=== PATIENT | female | born 1985 | race Caucasian/White ===

== ENCOUNTER 2024-08-23 15:43 | Emergency (ER) | payer BC, SELFPAY ==
[2024-08-23 16:00] VITALS: BP 104/73; PULSE 92; RESP 18; TEMP 36.7; O2SAT 97; BMI 27.5
--- NOTE | 2024-08-23 18:22 | ED_ITS ---
HPI - Abdominal Pain General Time Seen by Provider: 18:22 Date Seen: 08/23/24 Chief Complaint: Abdominal Pain Stated Complaint: lower abdominal pain Time Seen by Provider: 08/23/24 15:57 Source: patient and RN notes reviewed Mode of arrival: ambulatory Limitations: no limitations History of Present Illness HPI narrative: This very pleasant 39-year-old female is ambulatory into the ED accompanied by her spouse with complaint of lower abdominal pain. She and her spells where having intercourse. Afterwards, she started feeling cramping. About an hour after this, she was feeling more intense pain, felt like she might need to have a bowel movement. She actually felt lightheaded, like she might pass out the pain became so severe, had chills during this time. She had a history of a ruptured ovarian cyst about 12-15 years ago, had an ultrasound. She states this feels similar. She is due for her menstrual cycle maybe within the next 5 days or so. Her has had a vasectomy. She had no vaginal bleeding. She is not on any contraceptives. She prior to this was not having any nausea vomiting, no diarrhea constipation, no changes in urination, no fevers or chills. The pain has let up some now. She has had no abdominal surgeries, has had 2 NSVDs. She states she has had normal Pap smears. MD elicited complaint: abdominal pain Related Data Home Medications ?Medication ?Instructions ?Recorded ?Confirmed No Known Home Medications 08/23/24 08/23/24 Allergies Allergy/AdvReac Type Severity Reaction Status Date / Time codeine AdvReac Intermediate Verified 08/23/24 16:07 Review of Systems Status of ROS Reports: 6 or more systems reviewed and unremarkable except as noted in History and below PFSH PFS Social History Smoking Status: Former smoker What tobacco products do you use: cigarettes Smoking quit date/years: <= 15 years ago Do you use any of these nicotine containing products: None How often do you have a drink containing alcohol: 2-3 times a week AUDIT-C Alcohol total score: 3 Non-prescribed substance use: denies use Exam Const: Vital Signs, click to edit/add: Vital Signs - 24 hr 08/23/24 16:00 08/23/24 18:53 08/23/24 20:15 Temperature 98.1 F 97.8 F 97.0 F L Pulse Rate [Right Pulse Oximeter] 92 74 76 Respiratory Rate 18 16 18 Blood Pressure [Ri ght Upper Arm] 104/73 110/82 110/78 Pulse Oximetry 97 97 97 Oxygen Delivery Me thod Room Air Room Air Room Air Cherrie is a very pleasant 39-year-old female that is alert, interactive, no apparent distress. Sclera clear, no icterus. CV regular rate and rhythm, no murmur. Lungs clear anteriorly. Abdomen is soft, nondistended, normal bowel sounds. She has no rebound or guarding, mild suprapubic to left lower quadrant pain again without rebound or guarding. Do not feel any organomegaly or masses. Pelvic exam and bimanual exam deferred at this point. Documenting provider has reviewed patient's vital signs: yes Course Course ED Course: Will obtain pelvic ultrasound to look for ovarian cyst pathology. Certainly ovarian cysts could be possible etiology. Will also look at a CBC, basic UA, confirm negative status. has had a vasectomy but there can be failure rates with this. Right now she is feeling better, she is advised to let me know if pain is intensifying again or further concerns. Reevaluation(s) Time of Reevaluation #1: 20:53 Reevaluation #1: Have reviewed with patient her ultrasound report. She has a right ovarian cyst and then probable ruptured right ovarian hemorrhagic cyst. Her pain is not significant at this time, not increasing. Do not have concerns for ongoing active bleeding based on her clinical examination. Did review the need to have follow-up ultrasound after 2 menstrual cycles to assure the cysts stability or resolution. Vital Signs Vital signs: Initial Vital Signs Temperature 98.1 F 08/23/24 16:00 Temperature Source Temporal Artery Scan 08/23/24 16:00 Pulse Rate 92 08/23/24 16:00 Pulse Rhythm Regular 08/23/24 16:00 Respiratory Rate 18 08/23/24 16:00 Blood Pressure 104/73 08/23/24 16:00 Blood Pressure Mean 83 08/23/24 16:00 Blood Pressure Position Sitting 08/23/24 16:00 Pulse Oximetry 97 08/23/24 16:00 Oxygen Delivery Method Room Air 08/23/24 16:00 Vital Signs Temperature 98.1 F 08/23/24 16:00 Pulse Rate 92 08/23/24 16:00 Respiratory Rate 18 08/23/24 16:00 Blood Pressure 104/73 08/23/24 16:00 Pulse Oximetry 97 08/23/24 16:00 Oxygen Delivery Method Room Air 08/23/24 16:00 Temperature 97.0 F L 08/23/24 20:15 Pulse Rate 76 08/23/24 20:15 Respiratory Rate 18 08/23/24 20:15 Blood Pressure 110/78 08/23/24 20:15 Pulse Oximetry 97 08/23/24 20:15 Oxygen Delivery Method Room Air 08/23/24 20:15 MDM - Abdominal Pain Lab Data Attestation: I reviewed the patient's lab results. Labs: Lab Results 08/23/24 08/23/24 Range/Units 18:38 19:07 WBC 8.74 (4.50-11.00) K/uL RBC 4.57 (4.00-5.20) m/uL Hgb 13.0 (12.0-16.0) gm/dL Hct 39.6 (33.0-51.0) % MCV 87 (80-100) fL MCH 28 (26-34) pg MCHC 33 (32-36) gm/dL RDW Coeff of Antony 13.1 (11.5-15.5) % Plt Count 218 (140-440) K/uL Neut % (Auto) 74.5 H (42.0-72.0) % Lymph % (Auto) 18.3 L (20-44) % [place] % (Auto) 6.3 (0.0-11.0) % Eos % (Auto) 0.5 (0.0-7.0) % Baso % (Auto) 0.3 (0.0-3.0) % Neut # (Auto) 6.50 (1.7-7.0) K/uL Lymph # (Auto) 1.60 (0.90-2.90) K/uL [place] # (Auto) 0.60 (0.00-0.90) K/UL Eos # (Auto) 0.04 (0.00-0.50) K/uL Baso # (Auto) 0.03 (0.00-0.30) K/uL Abs Immat Gran (auto) 0.01 (0.00-0.30) K/uL Imm/Tot Granulo (auto) 0.1 % Urine Color Yellow (Yellow) Urine Appearance Clear (Clear) Urine pH 6.5 (5.0-8.5) Ur Specific [place] 1.015 (1.000-1.030) Urine Protein Negative (Negative) Urine Glucose (UA) Negative (Negative) Urine Ketones Trace A (Negative) Urine Blood Trace-intact A (Negative) Urine Nitrite Negative (Negative) Urine Bilirubin Negative (Negative) Urine Urobilinogen 0.2 (0.2-1.0) Ur Leukocyte Esterase Negative (Negative) Urine RBC 0-2 (0-2) Urine WBC 0-2 (0-5) Ur Squamous Epith Cells None (None-Few) Urine Bacteria None (None) Urine HCG, Qual Negative (Negative) Imaging Data US pelvis: Attestation: I have reviewed the pertinent imaging results. Radiologist's impression: Patient: CHERRIE [place] Facility:?[facility] Patient ID:?[id number] Site Patient ID:?[id number]. Site :?[id number] Study:?US-Pelvis TA/TV w/doppler-08/23/2024 8:00:40 PM Ordering Physician:?Jayme Ceja Final Report: INDICATION: Left lower quadrant pain. TECHNIQUE: Transabdominal and transvaginal ultrasound examination of the pelvis was performed. Grayscale and color Doppler images were obtained. COMPARISON: None. FINDINGS: Uterus: Measures 7.7 x 3.9 x 4.7 cm. Normal in echotexture. No suspicious masses. Endometrium: 5 mm. No significant endometrial free fluid. Right Ovary: Measures 4.9 x 2.6 x 4.8 cm. Complex heterogeneous right ovarian cyst measuring 2.6 x 2.3 x 2.6 cm without significant hypervascularity. Normal arterial and venous flow on color Doppler imaging. Left ovary: Measures 2.7 x 1.0 x 1.8 cm. No suspicious masses. Normal arterial and venous flow on color Doppler imaging. Cul-de-sac: Small amount of free fluid in the cul-de-sac with internal echoes. IMPRESSION: Findings suggestive of a ruptured right ovarian hemorrhagic cyst measuring 2.6 cm, with a small amount of hemoperitoneum. Recommend repeat pelvic ultrasound after 2 menstrual cycles to assess stability or resolution. Dictated by Donn Lozada MD @ 08/23/2024 8:27:16 PM (Electronic Signature) Discharge Plan Discharge Clinical Impression: Hemorrhagic cyst of right ovary Ovarian cyst Qualifiers: Laterality: right Qualified Code(s): N83.201 - Unspecified ovarian cyst, right side Patient Disposition: Home, Self-Care Condition: Stable Instructions: Ovarian Cyst (ED) Additional Instructions: Can use Toradol initially for pain management. Once done with Toradol, can go back to ibuprofen. Can use Tylenol 1000 mg 3 times a day as needed with both of these medicines. You do need to have a follow-up ultrasound after 2 menstrual cycles to re-evaluate ovaries, ovarian cyst. Review handout, if further concerns, please seek re-evaluation. Activity Level: Activity as Tolerated Prescriptions: No Action No Known Home Medications Follow Up/Referrals: Provider,Not a Local [Primary Care Provider] - Stand Alone Forms: AGELON ? Info Instructions
--- NOTE | 2024-08-23 18:28 | CRLHL7_ITS ---
For Patients: As a result of the Century Cures Act, medical imaging exams and procedure reports are released immediately into your electronic medical record. You may view this report before your referring provider. If you have questions, please contact your health care provider. INDICATION: Left lower quadrant pain. TECHNIQUE: Transabdominal and transvaginal ultrasound examination of the pelvis was performed. Grayscale and color Doppler images were obtained. COMPARISON: None. FINDINGS: Uterus: Measures 7.7 x 3.9 x 4.7 cm. Normal in echotexture. No suspicious masses. Endometrium: 5 mm. No significant endometrial free fluid. Right Ovary: Measures 4.9 x 2.6 x 4.8 cm. Complex heterogeneous right ovarian cyst measuring 2.6 x 2.3 x 2.6 cm without significant hypervascularity. Normal arterial and venous flow on color Doppler imaging. Left ovary: Measures 2.7 x 1.0 x 1.8 cm. No suspicious masses. Normal arterial and venous flow on color Doppler imaging. Cul-de-sac: Small amount of free fluid in the cul-de-sac with internal echoes. IMPRESSION: Findings suggestive of a ruptured right ovarian hemorrhagic cyst measuring 2.6 cm, with a small amount of hemoperitoneum. Recommend repeat pelvic ultrasound after 2 menstrual cycles to assess stability or resolution. Dictated by Donn Lozada MD @ 08/23/2024 8:27:16 PM (Electronically Signed)
[2024-08-23 18:44] LABS: Appearance Urine Clear (Clear); Bilirubin Urine Negative (Negative); Blood Urine Trace-intact (Negative); Color Urine Yellow (Yellow); Glucose Urine Negative (Negative); Ketones Urine Trace (Negative); Leukocyte Esterase Urine Negative (Negative); Nitrite Urine Negative (Negative); Protein Urine Negative (Negative); Specific Gravity Urine 1.015 (1.000-1.030); Urobilinogen Urine 0.2 (0.2-1.0); pH Urine 6.5 (5.0-8.5)
[2024-08-23 18:46] LABS: Ur HCG Qualitative* Negative (Negative)
[2024-08-23 18:50] LABS: RBC Urine 0-2 (0-2); WBC Urine 0-2 (0-5)
[2024-08-23 18:53] VITALS: BP 110/82; PULSE 74; RESP 16; TEMP 36.6; O2SAT 97
[2024-08-23 19:13] LABS: Basophils Absolute Auto 0.03 K/uL (0.00-0.30); Basophils Percent Auto 0.3 % (0.0-3.0); Eosinophils Absolute Auto 0.04 K/uL (0.00-0.50); Eosinophils Percent Auto 0.5 % (0.0-7.0); Hematocrit 39.6 % (33.0-51.0); Immature Granulocytes Abs Auto 0.01 K/uL (0.00-0.30); Immature Granulocytes Pct Auto 0.1 %; Lymphocytes Percent Auto 18.3 % (20-44); Mean Corpuscular HGB Conc 33 gm/dL (32-36); Mean Corpuscular Hemoglobin 28 pg (26-34); Mean Corpuscular Volume 87 fL (80-100); Monocytes Percent Auto 6.3 % (0.0-11.0); Neutrophils Percent Auto 74.5 % (42.0-72.0); Platelet Count* 218 K/uL (140-440); RDW Coefficient of Variation % 13.1 % (11.5-15.5); Red Blood Count 4.57 m/uL (4.00-5.20); White Blood Count* 8.74 K/uL (4.50-11.00)
[2024-08-23 19:29] LABS: Slide Review Reflex No
[2024-08-23 20:15] VITALS: BP 110/78; PULSE 76; RESP 18; TEMP 36.1; O2SAT 97
== END 2024-08-23 21:09 | disposition home or self-care (01) ==
PROVIDERS: Emergency Provider Family Medicine
DX: N83.201 Unspecified ovarian cyst, right side (principal)
CPT/HCPCS: 36415; 76830; 76856; 81001; 81025; 85025; 93976; 99284

== ENCOUNTER 2024-11-12 14:10 | Outpatient (CLI) | payer BC, SELFPAY | END 2024-11-12 14:11 | disposition home or self-care (01) | PROVIDERS: PCP Physician Assistant Medical; Visit Provider Physician Assistant Medical | DX: L73.2 Hidradenitis suppurativa (principal); Z13.6 Encounter for screening for cardiovascular disorders; Z13.29 Encounter for screening for other suspected endocrine disorder | CPT/HCPCS: 80053; 80061; 84443 ==

== ENCOUNTER 2024-11-20 10:29 | Outpatient (CLI) | payer BC, SELFPAY ==
--- NOTE | 2024-11-20 10:45 | CRLHL7_ITS ---
For Patients: As a result of the Century Cures Act, medical imaging exams and procedure reports are released immediately into your electronic medical record. You may view this report before your referring provider. If you have questions, please contact your health care provider. INDICATION: F/u right ovarian cyst COMPARISON: 08/23/2024 TECHNIQUE: 2D aguilar scale and color Doppler images were acquired of the pelvis using a transabdominal and transvaginal approach. FINDINGS: Sonographic images demonstrate a normal size and smooth outer contour of the uterus. Uterus measures 7.2 cm in length by 3.9 cm in AP diameter by 5.5 cm in transverse dimension. The myometrium has a normal uniform echotexture. The endometrial lining appears normal and measures 3.8 mm in composite thickness. The right ovary measures 3.2 x 1.4 x 2.1 cm in size and the left ovary measures 2.5 x 1.4 x 1.6 cm. The ovaries demonstrate normal arterial and venous blood flow on color Doppler analysis. There are no suspicious fluid collections within the cul-de-sac. IMPRESSION: Resolution of the previously noted right ovarian cyst. Dictated by Bong Alberto MD @ 11/20/2024 11:31:04 AM (Electronically Signed)
== END 2024-11-20 10:30 | disposition home or self-care (01) ==
LOC: US 10:29
PROVIDERS: PCP Physician Assistant Medical; Visit Provider Physician Assistant Medical
DX: N83.201 Unspecified ovarian cyst, right side (principal)
CPT/HCPCS: 76830; 76856

== ENCOUNTER 2025-03-04 15:37 | Outpatient (CLI) | payer BC, SELFPAY ==
[2025-03-09 00:16] LABS: HPV Source Cervix
[2025-03-14 14:57] LABS: Pap Test Screened Manually Done
== END 2025-03-04 15:38 | disposition home or self-care (01) ==
PROVIDERS: PCP Physician Assistant Medical; Visit Provider Obstetrics & Gynecology
DX: Z12.4 Encounter for screening for malignant neoplasm of cervix (principal); Z11.51 Encounter for screening for human papillomavirus (HPV)
CPT/HCPCS: 87624; 87625; 88141; 88142; 88175